=== PATIENT | female | born 1960 | race Caucasian/White ===

== ENCOUNTER 2017-11-27 16:21 | Emergency (ER) | payer MEDICARE, MEDICAID ==
[~2017-11-27] VITALS: Ht 154.9 cm; Wt 47.4 kg
[~2017-11-27 16:21] MED LIST: CINA30 PO; LISI-604 PO
[2017-11-27 16:47] VITALS: BP 143/95
== END 2017-11-27 19:08 | disposition home or self-care (01) ==
LOC: ER 16:21 → SUPCPDRO 21:26
DX: S80.02XA Contusion of left knee, initial encounter (principal); S00.511A Abrasion of lip, initial encounter; S80.211A Abrasion, right knee, initial encounter; H61.22 Impacted cerumen, left ear; M85.88 Other specified disorders of bone density and structure, other site; N18.6 End stage renal disease; Z99.2 Dependence on renal dialysis; Z88.1 Allergy status to other antibiotic agents; Z79.899 Other long term (current) drug therapy; Z95.0 Presence of cardiac pacemaker; W01.0XXA Fall on same level from slipping, tripping and stumbling without subsequent striking against object, initial encounter; Y93.89 Activity, other specified; Y92.89 Other specified places as the place of occurrence of the external cause; Y99.8 Other external cause status
CPT/HCPCS: 73562; 99284

== ENCOUNTER → 2021-03-25 | Outpatient (CLI) | payer MEDICARE, MEDICAID ==
[~2021-03-25] MED LIST changes: -LISI-604 PO; +LISI20TA31 PO
== END | disposition home or self-care (01) ==
LOC: MAMMO 10:08
DX: R92.1 Mammographic calcification found on diagnostic imaging of breast (principal); R92.2 Inconclusive mammogram; R60.0 Localized edema; N63.10 Unspecified lump in the right breast, unspecified quadrant; R92.8 Other abnormal and inconclusive findings on diagnostic imaging of breast
CPT/HCPCS: 76641; 77062; 77066; G0279

== ENCOUNTER 2021-08-13 00:07 | Inpatient (IN) | payer MEDICARE, MEDICAID ==
[~2021-08-13] VITALS: Ht 154.9 cm; Wt 55.8 kg
[2021-08-13] MEDS ORDERED: BACITRACIN ZINC OINT UDPKT TOP ONE (02:00)
[2021-08-13 03:02] LABS: BASOPHILS % 0.6 % (0.0-2.0); EOSINOPHILS % 3.1 % (0.0-5.0); HEMATOCRIT. 36.5 % (36.0-48.0); HEMOGLOBIN. 11.7 g/dL (12.0-16.0); LYMPHOCYTES % 16.1 % (20.0-50.0); MEAN CORPUSCULAR VOLUME 93.5 fL (81.0-99.0); MEAN PLATELET VOLUME 8.6 fl (7.4-10.4); MONOCYTES % 12.5 % (2.0-8.0); NEUTROPHILS % 67.7 % (40.0-76.0); RED CELL DISTRIBUTION WIDTH 14.5 % (11.6-14.6)
[2021-08-13 03:14] LABS: CHLORIDE 103 mEq/L (98-107)
[2021-08-13 03:28] LABS: INR 1.1; PROTHROMBIN TIME 11.7 sec (9.6-11.0)
[2021-08-13] MEDS ORDERED: CLONIDINE 0.1MG TABLET PO PRN (08:15)
[2021-08-13] MEDS ORDERED: DOCUSATE SODIUM 100MG CAPSULE PO PRN (08:15)
[2021-08-13] MEDS ORDERED: HYDROCODONE/ACETAMINOPHEN 5/325MG TABLET PO PRN (08:15)
[2021-08-13] MEDS ORDERED: ACETAMINOPHEN 325MG TABLET PO PRN (08:15)
[2021-08-13] MEDS ORDERED: ONDANSETRON HCL 4MG/2ML INJ IV PRN (08:15)
[2021-08-13] MEDS ORDERED: GUAIFENESIN 200MG/10ML SUGAR FREE UDC PO PRN (08:15)
[2021-08-13] MEDS ORDERED: NALOXONE HCL 0.4MG/ML VIAL IV PRN (08:30)
[2021-08-13 10:56] VITALS: BP 114/65
[2021-08-13 12:00] VITALS: BP 101/52
[2021-08-13 12:45] LABS: PLATELET 45 x1000/uL (130-400)
[2021-08-13 15:01] LABS: HEPATITIS B SURFACE ANTIGEN NEGATIVE
[2021-08-13 16:00] VITALS: BP 106/55
[2021-08-13 19:57] VITALS: BP 105/44
[2021-08-13 20:00] VITALS: BP 118/67
[2021-08-13] MEDS ORDERED: DESMOPRESSIN ACETATE IVPB 15 MCG in SODIUM CHLORIDE 0.9% 50 ML IV NR (20:30)
[2021-08-13 20:42] LABS: BASOPHILS % 0.5 % (0.0-2.0); HEMATOCRIT. 38.3 % (36.0-48.0); LYMPHOCYTES % 15.7 % (20.0-50.0); MEAN CORPUSCULAR HEMOGLOBIN 30.1 pg (28.0-32.0); MEAN CORPUSCULAR VOLUME 95.6 fL (81.0-99.0); MEAN PLATELET VOLUME 8.6 fl (7.4-10.4); NEUTROPHILS % 65.8 % (40.0-76.0); PLATELET 56 x1000/uL (130-400); RED BLOOD CELL COUNT 4.01 mill/uL (4.2-5.4)
[2021-08-13 20:53] LABS: INR 1.1; PARTIAL THROMBOPLASTIN TIME 27.9 sec (23.4-31.0); PROTHROMBIN TIME 11.4 sec (9.6-11.0)
[2021-08-14 00:01] VITALS: BP 114/58
[2021-08-14 03:30] VITALS: BP 129/64
[2021-08-14] MEDS ORDERED: DIPHENHYDRAMINE 50MG/ML VIAL IV PRN (06:15)
[2021-08-14 08:00] VITALS: BP 105/66
[2021-08-14 11:22] LABS: BASOPHILS % 0.5 % (0.0-2.0); EOSINOPHILS % 2.7 % (0.0-5.0); HEMOGLOBIN. 11.5 g/dL (12.0-16.0); LYMPHOCYTES % 16.8 % (20.0-50.0); MEAN CORPUSCULAR HEMOGLOBIN 30.3 pg (28.0-32.0); MEAN CORPUSCULAR VOLUME 94.8 fL (81.0-99.0); MEAN PLATELET VOLUME 8.4 fl (7.4-10.4); MONOCYTES % 10.8 % (2.0-8.0); NEUTROPHILS % 69.2 % (40.0-76.0); PLATELET 75 x1000/uL (130-400); RED CELL DISTRIBUTION WIDTH 14.4 % (11.6-14.6)
[2021-08-14 11:55] LABS: CHLORIDE 105 mEq/L (98-107)
[2021-08-14 12:00] VITALS: BP 103/52
== END 2021-08-14 13:50 | disposition left against medical advice (07) | DRG 314 ==
LOC: ER 00:07 → 8WST 02:05 → EDBEDREQ 02:12 → ENRESERV 07:11
PROVIDERS: ADMIT Hospitalist; ATTEND Hospitalist
PROC: 30233R1 Transfusion of Nonautologous Platelets into Peripheral Vein, Percutaneous Approach (ICD-10-PCS; principal; 2021-08-13)
DX: T82.838A Hemorrhage due to vascular prosthetic devices, implants and grafts, initial encounter (principal); N18.6 End stage renal disease; I50.33 Acute on chronic diastolic (congestive) heart failure; E43 Unspecified severe protein-calorie malnutrition; I13.2 Hypertensive heart and chronic kidney disease with heart failure and with stage 5 chronic kidney disease, or end stage renal disease; N25.81 Secondary hyperparathyroidism of renal origin; D50.0 Iron deficiency anemia secondary to blood loss (chronic); I25.10 Atherosclerotic heart disease of native coronary artery without angina pectoris; D69.6 Thrombocytopenia, unspecified; I25.2 Old myocardial infarction; Z82.49 Family history of ischemic heart disease and other diseases of the circulatory system; Z99.2 Dependence on renal dialysis; Z86.16 Personal history of COVID-19; Z88.8 Allergy status to other drugs, medicaments and biological substances; Z68.23 Body mass index [BMI] 23.0-23.9, adult; Z95.0 Presence of cardiac pacemaker; Y84.1 Kidney dialysis as the cause of abnormal reaction of the patient, or of later complication, without mention of misadventure at the time of the procedure; Y92.89 Other specified places as the place of occurrence of the external cause; D63.8 Anemia in other chronic diseases classified elsewhere
CPT/HCPCS: 36415; 71045; 80053; 85025; 86705; 86709; 86803; 86850; 86900; 87340; 93005; 99285; J2597; P9035